=== PATIENT | female | born 1975 | race American Indian/Alaskan Native ===

== ENCOUNTER 2020-11-17 00:33 | Observation (INO) | payer MEDICAID, OTHER, SELFPAY ==
[2020-11-17] VITALS (18 sets, daily range): BP systolic 113–180; BP diastolic 71–105; PULSE 87–115; RESP 14–22; TEMP 36.4–37.2; O2SAT 90–100; BMI 41.2
--- NOTE | 2020-11-17 | DI.RAD.S_ITS ---
PROCEDURE: XR HIP LT 1V INDICATIONS: Re-location of left hip TECHNIQUE: A single fluoroscopic image was obtained during an operative procedure and submitted for interpretation following the completion of the procedure. COMPARISON: [facility], CR, XR PELVIS 1 OR 2 VIEWS, 10/28/2020, 7:59. Located Within [facility], CR, XR HIP W PEL IF DONE LT 2V, 11/17/2020, 0:44. FINDINGS: This study was performed for intraoperative localization. On this fluoroscopic image, the left prosthetic hip has now been relocated. Please correlate with intraoperative findings. IMPRESSION: Left prosthetic hip relocation. Dictated by: Patrick Katz M.D. on 11/17/2020 at 8:01 Approved by: Patrick Katz M.D. on 11/17/2020 at 8:01
--- NOTE | 2020-11-17 00:41 | DI.RAD.S_ITS ---
PROCEDURE: XR HIP W PEL IF DONE LT 2V INDICATIONS: deformity, shortened, rotated left hip TECHNIQUE: AP pelvis with lateral view(s) of the left hip(s). COMPARISON: [facility], CR, XR HIP LT 1V, 11/17/2020, 7:18. [facility], CR, XR PELVIS 1 OR 2 VIEWS, 10/28/2020, 7:59. FINDINGS: Bones: There is left prosthetic hip dislocation, with the femoral head dislocated superiorly to the prosthetic acetabular cup. No yamil fracture can be seen. Soft tissues: The visualized bowel gas pattern is normal. No suspicious soft tissue calcifications. IMPRESSION: Left prosthetic hip dislocation. Note: No significant discrepancy from the preliminary report. Dictated by: Patrick Katz M.D. on 11/17/2020 at 11:40 Approved by: Patrick Katz M.D. on 11/17/2020 at 11:41
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
[2020-11-17 01:56] LABS: Add Manual Diff / Slide Review NO; Basophils Absolute Auto 100 /uL (0-100); Basophils Percent Auto 0.6 % (0-2); Eosinophils Absolute Auto 200 /uL (0-450); Eosinophils Percent Auto 2.4 % (2-4); Hematocrit 42.9 % (36-46); Hemoglobin 14.3 g/dL (12.0-16.0); Lymphocytes Absolute Auto 3900 /uL (1100-4500); Lymphocytes Percent Auto 38.2 % (25-40); Mean Corpuscular HGB Conc 33.2 % (30-36); Mean Corpuscular Hemoglobin 29.9 PG (26-34); Mean Corpuscular Volume 89.9 fL (80-100); Monocytes Absolute Auto 600 /uL (0-900); Monocytes Percent Auto 6.3 % (3-14); Neutrophils Absolute Auto 5300 /uL (1500-7000); Neutrophils Percent Auto 52.5 % (50-75); Platelet Count 389 X10^3/uL (150-400); Red Blood Cell Count 4.77 X10^6/uL (4.0-5.2); Red Cell Distribution Width 14.2 % (11.6-14.8); White Blood Cell Count 10.2 X10^3/uL (4.5-11.0)
[2020-11-17 01:59] LABS: BUN Creatinine Ratio 10.8 (6-22); Blood Urea Nitrogen 7 mg/dL (7-17); Calcium 8.9 mg/dL (8.4-10.2); Carbon Dioxide 22 mmol/L (22-32); Chloride 112 mmol/L (98-107); Estimated Glomerular Filt Rate > 60.0 mL/min (>60); Glucose 105 mg/dL (70-100); HEMOLYSIS 40 (0-50); Potassium 4.1 mmol/L (3.4-5.1); Sodium 144 mmol/L (137-145)
[2020-11-17 03:05] LABS: COVID19 - ADMIT (NP swab/PCR) Negative (Negative)
[2020-11-17] MEDS: HYDROMORPHONE 0.5 MG INJ IV ×2 (03:34→05:16)
[2020-11-17] MEDS: SODIUM CHLORIDE 0.9% 1,000 ML 125 ML IV (05:16)
--- NOTE | 2020-11-17 07:35 | PM.HP.1 ---
History of Present Illness History of Present Illness Date Patient Seen: 11/17/20 Time Patient Seen: 07:20 Date of Onset of Symptoms: 11/17/20 Chief complaint: Dislocated Hip Narrative: The patient is a 45-year-old woman who had a left total hip replacement done in [place] in September of 2009. She reports she has had many dislocations and that she is scheduled in the near future to have a revision done by Dr. Spangler at [facility]. She was attending a family celebration last night and had several drinks. She was sitting with her left leg crossed over her right when her grandchild began to fall and she leaned forward to try to catch him. The hip then went out. She was taken to [facility] Emergency Department for evaluation. Apparently she was in a great deal of discomfort and had received large doses of ketamine and pain reliever in the field. She was still reactive in the emergency room despite the extensive medications she had received and the emergency room physician on duty was not comfortable doing additional sedation for a relocation in the emergency room. She was admitted and monitored and given pain medication until reduction under general anesthesia could be accomplished this morning. Patient History Medical History (Updated 11/17/20 @ 07:39 by Glen Gilbert MD) Diverticulitis Surgical History (Updated 11/17/20 @ 07:43 by Glen Gilbert MD) History of appendectomy History of cholecystectomy History of colectomy History of hernia repair History of total hip replacement History of tubal ligation Family & Social History Family History (Updated 11/17/20 @ 07:44 by Glen Gilbert MD) Other Diabetes mellitus Hypertension Social History: household members family Prior Living Arrangements House Safety & Behavioral: Feels Safe in Current Yes Environment Been Physically Hurt or No Threatened By a Person Suicidal Ideation Description None Suicide Plan Description No Plan Tobacco & Substance use: Smoking Status Never smoker alcohol intake frequency 3 drinks per evening Substance Use Type does not use Meds Home Medications and Allergies Home Medications Medication Instructions Recorded Confirmed Type No Known Home Medications 11/17/20 11/17/20 History Allergies Allergy/AdvReac Type Severity Reaction Status Date / Time Ibuprofen Allergy Unknown Uncoded 10/07/17 13:05 Naproxen Allergy Unknown Uncoded 10/07/17 13:05 Sumatriptan Allergy Unknown Uncoded 10/07/17 13:05 Review of Systems Review of Systems ROS: Yes All systems reviewed with the patient and are negative except as otherwise documented Exam Vital Signs (past 8 hours): - 11/17/20 00:36 11/17/20 01:23 11/17/20 01:30 Temperature 98.9 F Pulse Rate 115 H 96 H 94 H Respiratory Rate 18 Blood Pressure 157/96 H Pulse Oximetry 96 98 90 L 11/17/20 02:05 11/17/20 02:30 11/17/20 03:00 Temperature Pulse Rate 94 H 95 H 95 H Respiratory Rate Blood Pressure Pulse Oximetry 97 96 97 11/17/20 03:30 11/17/20 03:39 11/17/20 04:00 Temperature Pulse Rate 101 H 112 H 107 H Respiratory Rate Blood Pressure 180/105 H Pulse Oximetry 95 96 93 11/17/20 05:05 Temperature 98.5 F Pulse Rate 102 H Respiratory Rate 22 Blood Pressure 158/88 H Pulse Oximetry 98 Oxygen Delivery Method Room Air Oxygen Flow Rate 0 Narrative Exam Narrative: The patient is lying comfortably in her hospital bed. Chest is clear to auscultation. Cardiac exam is regular rate and rhythm. Abdomen is obese soft and nontender. Extremities exam is notable for the left lower extremity which is slightly shortened and not markedly rotated. Light touch is intact throughout the left foot. Dorsiflexion and plantar flexion of the toes is intact. She has a 3+ dorsalis pedis pulse. Objective Labs Result Diagrams: 11/17/20 00:20 11/17/20 00:20 Labs: Laboratory Results - last 24 hr 11/17/20 11/17/20 11/17/20 00:20 00:20 02:05 WBC 10.2 RBC 4.77 Hgb 14.3 Hct 42.9 MCV 89.9 MCH 29.9 MCHC 33.2 RDW 14.2 Plt Count 389 Neut % (Auto) 52.5 Lymph % (Auto) 38.2 [place] % (Auto) 6.3 Eos % (Auto) 2.4 Baso % (Auto) 0.6 Neut # (Auto) 5300 Lymph # (Auto) 3900 [place] # (Auto) 600 Eos # (Auto) 200 Baso # (Auto) 100 Sodium 144 Potassium 4.1 Chloride 112 H Carbon Dioxide 22 BUN 7 Creatinine 0.65 Estimated GFR > 60.0 BUN/Creatinine Ratio 10.8 Glucose 105 H Calcium 8.9 SARS-CoV-2 (PCR) Negative Assessment & Plan Assessment & Plan narrative: The patient has a dislocated left hip prosthesis on radiographs. This appears to be a posterior dislocation both by radiographic evidence and by the patient's description of the event. She had been drinking last night and had a large amount of medication in the ambulance on the way to the hospital. I agree that it is appropriate that she have anesthetic care while undergoing her hip relocation. I have discussed the risks benefits and alternatives. The patient is aware there is centrally is no alternative other than a reduction. Risks discussed included need for open reduction, fracture, nerve damage, and anesthetic complications such as stroke, coma, myocardial infarction, permanent paralysis and . As the patient is already in the process of scheduling for a hip revision at [facility] with her chosen hip surgeon, if closed reduction is not possible we will transfer the patient to [facility] to allow them to schedule the revision on an urgent basis so she does not have to have 2 open surgeries. COVID-19 COVID-19 status: Negative Result date/Date tested (Pos, Neg/Pending): 11/17/20 Time Spent With Patient Time with patient: 15-24 minutes
--- NOTE | 2020-11-17 07:38 | PC.NURSE ---
Addendum entered by Julienne Vasquez R.N. 11/17/20 11:29: Patient marino removed at 1030, patient voided, IV removed for D/C, patient tolerated. Patient given discharge instruction regarding f/u appointment, activity and posterior hip precautions. Patient verbalized understanding. Patient discharged via wheelchair with aide assist. Addendum entered by Julienne Vasquez R.N. 11/17/20 09:01: Patient returned form PACU, A/O x 3, remains 99-100% on RA while at rest. Breathing unlabored. Patient denies pain. Original Note: Patient resting in bed. Dr. Gilbert in to see patient. Consent signed and place in patients chart. Marino patent, draining clear yellow urine. Patient prepared for surgery, saline locked, dentures bedside, tele removed, patient has no undergarments and no jewelry. Patient is independently swabbing mouth, remains NPO. Call light in reach. Denies further needs at this time.
--- NOTE | 2020-11-17 08:28 | P.OP_ITS ---
Operative Date/Time/Diagnoses Date of procedure: 11/17/20 Time of procedure: 08:28 Pre-op diagnosis: Dislocation of prosthetic left hip Post-op diagnosis: same Procedure & Clinicians Procedure: Closed reduction of left prosthetic hip dislocation Same procedure as scheduled: Yes Indications: The patient is a 45-year-old woman who underwent hip replacement approximately 11 years ago and has had multiple dislocations since. She is in the process of planning a revision total hip replacement with Dr. Spangler at [facility]. She had a dislocation late last night. She has agreed to closed reduction after discussion of the risks benefits and alternatives as outlined in my history and physical. Surgeon: Glen Gilbert Click Yes if Unassisted: Yes Anesthesia Type: General Operative Notes Findings: Concentric reduction of left hip confirmed on fluoroscopy. Closure Type: not applicable Specimen(s): none sent Prosthetic devices, grafts, tissues, transplants, or devices: None Applied: catheter Estimated Blood Loss (mL): 0 Blood products transfused: none Procedure in detail: The patient was taken to the operating room on her hospital bed and underwent a general anesthetic. She was then transferred to the OR table in the supine position. She was administered succinylcholine for muscle relaxation. The hip was then gently reduced with flexion, internal rotation, adduction and traction. A palpable reduction event occurred. Fluoroscopy was then used to confirm a concentric reduction. She was transferred back to her hospital bed and allowed to emerge from anesthesia. She was then transferred to the recovery room in good condition having tolerated the procedure well. Complications: none Post-operative Condition: stable Disposition: PACU Plan for aftercare: The patient will be discharged today with follow-up with her primary orthopedist at [facility].
[2020-11-17] MEDS: LACTATED RINGERS 1,000 ML 42 ML IV (08:30)
--- NOTE | 2020-11-17 08:30 | SUR.OPER ---
Supine on padded OR bed, head on pillow, arms secured on padded arm boards at <90 degrees abduction, legs uncrossed, safety belt at thigh, tape over blanket over lower legs.
--- NOTE | 2020-11-17 08:36 | SUR.PHASEI ---
Patient denies any pain at this time. Strong PP noted to operative extremity. oxygen saturation down to 84 % when patient resting. Encouraged patient not to hold her breath and to take deep breaths in and out. Patient states she is sleepy,. Placed patient on oxygen at 2 liters nasal cannula as a buffer.
--- NOTE | 2020-11-17 12:11 | CM.DANOTE ---
DCP: Case received, EMR reviewed. Patient was initially sleeping. When this manager case went back to room, she had already left for home. DCP assessment completed based on information in patient's medical record, as well as from nurse, Julienne. Patient is a 45 year old female who admitted early this morning to the care of the orthopedic team. PCP: [facility]. Payer: [facility]. Patient came to the hospital via ambulance secondary to hip pain. Patient had dislocated her hip while grabbing on to her grand child to prevent a fall. Patient came in and had surgical procedure, closed reduction of her hip. No noted P.T. orders. According to nurse, Julienne, patient resides with her family, who had come to pick her up. She does not use any devices at her baseline. She resides in [place] with her family. She is employed at [employer]. P: Patient discharged home with family support today. Daria Reno RN/Diffusion Operator
--- NOTE | 2020-11-27 17:59 | PC.NURSE ---
Late Entry; NS infusion initiated 11/17 at 5:16, stopped by Anesthesia order at 0805, order to changed fluids to LR.
== END 2020-11-17 11:01 | disposition home or self-care (01) ==
LOC: ED 02:30 → AC 02:33
PROVIDERS: Admitting Provider Orthopaedic Surgery; Emergency Provider Emergency Medicine; Referring Provider Emergency Medicine; Visit Provider Orthopaedic Surgery
PROC: (CPT 27266; principal; 2020-11-17 08:00)
DX: M25.552 Pain in left hip (principal); T84.021A Dislocation of internal left hip prosthesis, initial encounter
CPT/HCPCS: 27266; 73501; 73502; 76000; 80048; 85025; 87635; 96361; 96374; 96376; 99283; 99284; C9803; G0378; J0330; J1170; J2250; J2704; J3010

== ENCOUNTER 2024-10-14 18:37 | Emergency (ER) | payer MEDICAID, OTHER, SELFPAY ==
[2020-11-17 04:52] VITALS: BMI 41.2
[2024-10-14 18:59] VITALS: BP 141/83; PULSE 107; RESP 14; TEMP 36.7; O2SAT 98; BMI 25.0
--- NOTE | 2024-10-14 22:02 | ED_ITS ---
HPI - Headache General Chief Complaint: Headache Stated Complaint: sent by [facility] Time Seen by Provider: 10/14/24 21:33 Mode of arrival: Family Vehicle History of Present Illness HPI Narrative: 49-year-old woman with a reported history of migraine but no headaches for a number of years presents with acute onset of headache starting this morning after awakening. Started in the occiput and is now stabbing pain through the back of her skull up to the crown. In last 2 hours she started having some fevers and feeling some body aches. She describes no trauma or recent falls. No other neurologic complaints. She was sent by her primary care physician for further evaluation. No coughing, palpitations, vomiting but she is having some nausea secondary to the headache. Related Data Home Medications Medication Instructions Recorded Confirmed No Known Home Medications 11/17/20 11/17/20 Allergies Allergy/AdvReac Type Severity Reaction Status Date / Time Naproxen Allergy Unknown Uncoded 10/14/24 19:06 Sumatriptan Allergy Unknown Uncoded 10/14/24 19:06 Review of Systems Review of Systems Narrative: Pertinent positive and negative findings as per HPI Patient History Medical History (Updated 10/15/24 @ 00:36 by Debbie Knight MD) History of migraine Diverticulitis Surgical History (Updated 11/17/20 @ 07:43 by Glen Gilbert MD) History of tubal ligation History of colectomy History of hernia repair History of cholecystectomy History of appendectomy History of total hip replacement Family History (Updated 11/17/20 @ 07:44 by Glen Gilbert MD) Other Diabetes mellitus Hypertension Social History household members: family Smoking Status: Current every day smoker Smoking Status: Current every day smoker tobacco type: cigarettes alcohol intake frequency: 0-2 drinks per day Exam Initial Vital Signs Initial Vital Signs: Vital Signs Temperature 98.0 F 10/14/24 18:59 Pulse Rate 107 H 10/14/24 18:59 Respiratory Rate 14 10/14/24 18:59 Blood Pressure 141/83 H 10/14/24 18:59 Pulse Oximetry 98 10/14/24 18:59 Oxygen Delivery Method Room Air 10/14/24 18:59 General: in no acute distress. Able to give a complete and coherent history. HEENT: Moist mucous membranes, normal sclera with reactive pupils, Neck: No cervical adenopathy, tenderness at the occipital insertion sites Respiratory: Lungs are clear to auscultation, no wheezing no rales no rhonchi. Full and symmetrical air movement Cardiac: Regular rate and rhythm no murmurs no bruits Abdomen: Soft, nontender, no rebound or guarding, no flank pain Skin: Warm and dry, no rashes Neurologic: Grossly neurologically intact with no obvious asymmetries or abnormalities, no Kernig or Brudzinski sign Extremities: No trauma, well perfused Psych: Cooperative, appropriate insight and affect Course Orders Ordered: ED Orders 10/14/24 22:02 CT head/brain wo con Stat 10/14/24 22:15 Complete Blood Count AUTO DIFF Stat Comprehensive Metabolic Panel Stat 10/14/24 22:30 Covid-19 + FLU A/B + RSV - PCR Stat Discontinued Medications Diphenhydramine HCl (Diphenhydramine 50 Mg/Ml Vial) 25 mg IV NOW ONE Stop: 10/14/24 22:02 Last Admin: 10/14/24 22:26 Dose: 25 mg Documented By: Sodium Chloride (Normal Saline 0.9%) 1,000 mls @ 1,000 mls/hr IV BOLUS ONE Stop: 10/14/24 23:00 Last Infusion: 10/15/24 00:25 Dose: Infused Documented By: Admin: 10/14/24 22:25 Dose: 1,000 mls/hr Documented By: Ketorolac Tromethamine (Ketorolac 30 Mg/Ml Vial) 15 mg IV NOW ONE Stop: 10/14/24 22:02 Last Admin: 10/14/24 22:27 Dose: 15 mg Documented By: MR Prochlorperazine (Prochlorperazine 10 Mg/2 Ml Vial) 10 mg IV NOW ONE Stop: 10/14/24 22:02 Last Admin: 10/14/24 22:26 Dose: 10 mg Documented By: MR Vital Signs Vital signs: Vital Signs - 8 hr 10/14/24 18:59 10/14/24 22:46 10/14/24 22:46 Temperature 98.0 F Pulse Rate 107 H 111 H Respiratory Rate 14 Blood Pressure 141/83 H 139/63 Pulse Oximetry 98 98 Oxygen Delivery Method Room Air 10/14/24 23:00 10/14/24 23:00 10/14/24 23:30 Temperature Pulse Rate 113 H Respiratory Rate Blood Pressure 142/63 H 146/67 H Pulse Oximetry 98 Oxygen Delivery Method 10/14/24 23:30 Temperature Pulse Rate 110 H Respiratory Rate Blood Pressure Pulse Oximetry 98 Oxygen Delivery Method MDM - Headache Lab Data 10/14/24 22:15 10/14/24 22:15 Labs: Lab Results 10/14/24 10/14/24 Range/Units 22:15 22:30 WBC 7.4 (4.5-11.0) X10^3/uL RBC 4.10 (4.0-5.2) X10^6/uL Hgb 12.1 (12.0-16.0) g/dL Hct 36.0 (36-46) % MCV 87.9 (80-100) fL MCH 29.5 (26-34) PG MCHC 33.6 (30-36) % RDW 14.8 (11.6-14.8) % Plt Count 407 H (150-400) X10^3/uL Neut % (Auto) 62.4 (50-75) % Lymph % (Auto) 29.1 (25-40) % [place] % (Auto) 4.4 (3-14) % Eos % (Auto) 1.8 L (2-4) % Baso % (Auto) 2.3 H (0-2) % Neut # (Auto) 4600 (8353-9771) /uL Lymph # (Auto) 2100 (7790-8203) /uL [place] # (Auto) 300 (0-900) /uL Eos # (Auto) 100 (0-450) /uL Baso # (Auto) 200 H (0-100) /uL Sodium 138 (137-145) mmol/L Potassium 4.2 (3.4-5.1) mmol/L Chloride 107 (98-107) mmol/L Carbon Dioxide 22 (22-32) mmol/L BUN 21 H (7-17) mg/dL Creatinine 0.85 (0.52-1.04) mg/dL Estimated GFR > 60 (>60) mL/min BUN/Creatinine Ratio 24.7 H (6-22) Glucose 119 H (70-100) mg/dL Calcium 8.7 (8.4-10.2) mg/dL Total Bilirubin 0.3 (0.2-1.3) mg/dL AST 27 (14-36) IU/L ALT 30 (<35) IU/L Alkaline Phosphatase 71 (38-126) U/L Total Protein 7.4 (6.3-8.2) g/dL Albumin 3.8 (3.5-5.0) g/dL Globulin 3.6 (1.7-4.1) g/dL Albumin/Globulin Ratio 1.1 (1.0-2.8) SARS-CoV-2 (PCR) Negative (Negative) Influenza A (RT-PCR) Flu a negative (NEGATIVE) Influenza B (RT-PCR) Flu b negative (NEGATIVE) RSV (PCR) Negative (Negative) MDM Narrative Medical decision making narrative: 49-year-old woman with a history of migraine with no migraine for a number of years, woke up this morning with severe occipital head pain getting worse over the course of the day. Seen by her primary care doctor who recommended an ER visit and CT scan of the head. On arrival in the emergency department she is hurting but alert and appropriate. No signs of significant infection. Workup shows no evidence of influenza or COVID, CBC does not suggest evidence of bacterial infection or severe anemia, chemistries are reassuring. CT scan of the brain does not show any acute pathology Patient is treated for migraine headache with 1 L of fluid, 15 mg of Toradol, IV Compazine and IV Benadryl and within an hour her symptoms have entirely resolved. At this point the most likely explanation for her symptoms are a simple migraine headache with no secondary complications. There is no indication for additional workup or hospitalization and she will be discharged home Discharge Plan Departure Patient Disposition: Home Clinical Impression: Migraine Qualifiers: Migraine type: unspecified Status migrainosus presence: without status migrainosus Intractability: not intractable Qualified Code(s): G43.909 - Migraine, unspecified, not intractable, without status migrainosus Instructions: DI for Migraine Activity Restrictions/Additional Instructions: Thank you for coming in today Your blood work was very reassuring. There was no sign of bacterial infection or meningitis. Your head CT was completely normal You were given fluids, Toradol, prochlorperazine, Benadryl which is a standard combination for migraine treatment under headache has completely resolved. Hope you are able to get a good night sleep and wake up headache free Prescriptions: No Action No Known Home Medications Referrals: Miscellaneous,Doctor, MD [Primary Care Provider] - Stand Alone Forms: Patient Portal/API/Survey
--- NOTE | 2024-10-14 22:02 | DI.CT.S_ITS ---
PROCEDURE: CT HEAD/BRAIN WO CON INDICATIONS: acute onset headache TECHNIQUE: Noncontrast 4.5 mm thick angled axial sections acquired from the foramen magnum to the vertex, with coronal and sagittal reformats. For radiation dose reduction, the following was used: automated exposure control, adjustment of mA and/or kV according to patient size. COMPARISON: None. FINDINGS: Image quality: Diagnostic CSF spaces: Basal cisterns are patent. Lateral ventricles are symmetric. Volume: Generally maintained. Brain: No intracranial hemorrhage. Rm-white differentiation is grossly maintained. Craniofacial structures: No significant paranasal sinus opacity. IMPRESSION: No acute intracranial pathology. If there is high concern for parenchymal pathology, consider further evaluation with MRI. Dictated by: Paramjit Lee M.D. on 10/14/2024 at 22:32 Approved by: Paramjit Lee M.D. on 10/14/2024 at 22:33
[2024-10-14 22:24] LABS: Add Manual Diff / Slide Review NO; Basophils Absolute Auto 200 /uL (0-100); Basophils Percent Auto 2.3 % (0-2); Eosinophils Absolute Auto 100 /uL (0-450); Eosinophils Percent Auto 1.8 % (2-4); Hemoglobin 12.1 g/dL (12.0-16.0); Lymphocytes Absolute Auto 2100 /uL (1100-4500); Lymphocytes Percent Auto 29.1 % (25-40); Mean Corpuscular HGB Conc 33.6 % (30-36); Mean Corpuscular Hemoglobin 29.5 PG (26-34); Mean Corpuscular Volume 87.9 fL (80-100); Monocytes Absolute Auto 300 /uL (0-900); Monocytes Percent Auto 4.4 % (3-14); Neutrophils Absolute Auto 4600 /uL (1500-7000); Neutrophils Percent Auto 62.4 % (50-75); Platelet Count 407 X10^3/uL (150-400); Red Cell Distribution Width 14.8 % (11.6-14.8); White Blood Cell Count 7.4 X10^3/uL (4.5-11.0)
[2024-10-14] MEDS: SODIUM CHLORIDE 0.9% 1,000 ML 1000 ML IV (22:25)
[2024-10-14] MEDS: PROCHLORPERAZINE 10 MG/2 ML VIAL IV (22:26)
[2024-10-14] MEDS: diphenhydrAMINE 50 MG/ML VIAL 25 MG IV (22:26)
[2024-10-14] MEDS: KETOROLAC 30 MG/ML VIAL 15 MG IV (22:27)
[2024-10-14 22:32] LABS: Alanine Aminotransferase 30 IU/L (<35); Albumin 3.8 g/dL (3.5-5.0); Albumin Globulin Ratio 1.1 (1.0-2.8); Alkaline Phosphatase 71 U/L (38-126); Aspartate Aminotransferase 27 IU/L (14-36); BUN Creatinine Ratio 24.7 (6-22); Bilirubin Total 0.3 mg/dL (0.2-1.3); Blood Urea Nitrogen 21 mg/dL (7-17); Calcium 8.7 mg/dL (8.4-10.2); Carbon Dioxide 22 mmol/L (22-32); Chloride 107 mmol/L (98-107); Estimated Glomerular Filt Rate > 60 mL/min (>60); Globulin 3.6 g/dL (1.7-4.1); Glucose 119 mg/dL (70-100); HEMOLYSIS 27 (0-50); Potassium 4.2 mmol/L (3.4-5.1); Sodium 138 mmol/L (137-145); Total Protein 7.4 g/dL (6.3-8.2)
[2024-10-14 22:46] VITALS: BP 139/63; PULSE 111; O2SAT 98
[2024-10-14 23:00] VITALS: BP 142/63; PULSE 113; O2SAT 98
[2024-10-14 23:11] LABS: Influenza A - CEPHEID Flu A NEGATIVE (NEGATIVE); Influenza B - CEPHEID Flu B NEGATIVE (NEGATIVE); Respiratory Syncytial Virus Negative (Negative)
[2024-10-14 23:23] LABS: COVID-19 CEPHEID 4-PLEX PCR Negative (Negative)
[2024-10-14 23:30] VITALS: BP 146/67; PULSE 110; O2SAT 98
--- NOTE | 2024-10-14 23:35 | PC.NURSE ---
Patient feeling better after medication. She is now asleep
[2024-10-14 23:59] VITALS: BP 134/81; PULSE 94; O2SAT 100
[2024-10-15] VITALS: BP 137/87; PULSE 95; O2SAT 99
[2024-10-15 00:30] VITALS: BP 137/82; PULSE 101; O2SAT 100
== END 2024-10-15 00:42 | disposition home or self-care (01) ==
PROVIDERS: Emergency Provider Emergency Medicine
DX: G43.909 Migraine, unspecified, not intractable, without status migrainosus (principal); R50.9 Fever, unspecified
CPT/HCPCS: 0241U; 36415; 70450; 80053; 85025; 96361; 96374; 96375; 99284; J0780; J1200; J1885